=== PATIENT | male | born 1980 | race Two or more races ===

== ENCOUNTER 2017-12-09 09:29 | Emergency (ER) | payer MEDICAID ==
[2017-12-09] MEDS: KETOROLAC 30 MG INJ IM (10:20)
== END 2017-12-09 10:35 | disposition home or self-care (01) ==
LOC: FTE 09:29
DX: M54.5 Low back pain (principal)
CPT/HCPCS: 96372; 99284-25

== ENCOUNTER 2017-12-10 05:57 | Emergency (ER) | payer MEDICAID ==
[2017-12-10] MEDS: CYCLOBENZAPRINE 10 MG TAB PO (06:57)
[2017-12-10] MEDS: KETOROLAC 30 MG INJ IM (06:57)
[2017-12-10] MEDS: METHYLPREDNISOLONE 125 MG INJ IM (06:57)
== END 2017-12-10 08:03 | disposition home or self-care (01) ==
LOC: E/R 05:57
DX: M54.5 Low back pain (principal)
CPT/HCPCS: 96372; 99284-25